=== PATIENT | male | born 1990 | race Caucasian/White ===

== ENCOUNTER → 2017-12-28 | Outpatient (CLI) | payer OTHER ==
[2017-12-28 12:23] LABS: ALBUMIN 4.3 GM/DL (3.2-5.2); ALBUMIN/GLOBULIN RATIO 1.16 (1.00-1.93); ALKALINE PHOSPHATASE 92 U/L (45-117); ALT/SGPT 121 U/L (12-78); AST/SGOT 37 U/L (7-37); BILIRUBIN,DIRECT 0.1 MG/DL (0.0-0.2); BILIRUBIN,TOTAL 0.4 MG/DL (0.2-1.0); IRON (FE) 78 UG/DL (65-175); PERCENT SATURATION 23.4 % (19.7-50.0); TOTAL IRON BINDING CAPACITY 333 UG/DL (250-450)
[2017-12-29 11:04] LABS: HEPATITIS B SURFACE ANTIGEN NEGATIVE (NEGATIVE)
[2017-12-29 11:31] LABS: HEPATITIS B CORE ANTIBODY IGM NEGATIVE (NEGATIVE)
[2017-12-29 11:40] LABS: HEPATITIS A ANTIBODY IGM NEGATIVE (NEGATIVE)
[2017-12-31 00:08] LABS: ANCA-ATYPICAL <1:20 titer (Neg:<1:20); ANTI-MITOCHONDRIAL ANTIBODY 1.3 Units (0.0-20.0); ANTINUCLEAR ANTIBODIES DIRECT Negative (Negative); CERULOPLASMIN 22.1 mg/dL (16.0-31.0); CYTOPLASMIC NEUTROP AB ANCA-C <1:20 titer (Neg:<1:20); LIVER-KIDNEY MICROSOMAL ABY 0.9 Units (0.0-20.0); PERINUCLEAR AB ANCA-P <1:20 titer (Neg:<1:20); TISSUE TRANSGLUTAMINASE IgA <2 U/mL (0-3)
== END ==
LOC: M LAB 11:07
DX: R94.5 Abnormal results of liver function studies (principal)
CPT/HCPCS: 83550

== ENCOUNTER 2018-05-16 10:44 | Inpatient (IN) | payer OTHER ==
[2018-05-16 11:15] LABS: HEMATOCRIT 45.4 % (42.0-52.0); HEMOGLOBIN 15.8 g/dl (13.5-17.5); MEAN CORPUSCULAR HEMOGLOBIN 29.5 pg (27.0-33.0); MEAN CORPUSCULAR HGB CONC 34.8 g/dl (32.0-36.5); MEAN CORPUSCULAR VOLUME 84.9 fl (80.0-96.0); PLATELET COUNT, AUTOMATED 262 10^3/uL (150-450); RED BLOOD COUNT 5.35 10^6/uL (4.30-6.10); RED CELL DISTRIBUTION WIDTH 12.2 % (11.5-14.5); WHITE BLOOD COUNT 7.6 10^3/uL (4.0-10.0)
[2018-05-16 11:41] LABS: AMPHETAMINES LEVEL URINE NEGATIVE (NEGATIVE); BARBITURATES URINE NEGATIVE (NEGATIVE); BENZODIAZEPINES URINE NEGATIVE (NEGATIVE); CANNABINOIDS URINE NEGATIVE (NEGATIVE); COCAINE METABOLITE URINE NEGATIVE (NEGATIVE); METHADONE URINE NEGATIVE (NEGATIVE); OPIATES URINE NEGATIVE (NEGATIVE); PHENCYCLIDINE URINE POSITIVE (NEGATIVE)
[2018-05-16] MEDS: LORazepam 2 MG/ML VIAL (J2060) IV (11:50)
[2018-05-16] MEDS: NS 1,000 ML IV (11:51)
[2018-05-16 12:44] LABS: ACETAMINOPHEN LEVEL < 2.0 UG/ML (10.0-30.0); ALBUMIN 3.8 GM/DL (3.2-5.2); ALBUMIN/GLOBULIN RATIO 0.97 (1.00-1.93); ALKALINE PHOSPHATASE 89 U/L (45-117); ALT/SGPT 113 U/L (12-78); ANION GAP 12 MEQ/L (8-16); AST/SGOT 38 U/L (7-37); BILIRUBIN,DIRECT 0.1 MG/DL (0.0-0.2); BILIRUBIN,TOTAL 0.5 MG/DL (0.2-1.0); BLOOD UREA NITROGEN 5 MG/DL (7-18); CALCIUM LEVEL 8.1 MG/DL (8.5-10.1); CARBON DIOXIDE LEVEL 24 MEQ/L (21-32); CHLORIDE LEVEL 98 MEQ/L (98-107); CPK CREATINE PHOSPHOKINASE 202 U/L (39-308); CREATININE FOR GFR 1.22 MG/DL (0.70-1.30); ETHYL ALCOHOL (ETHANOL) < 0.003 % (0.000-0.010); GLOMERULAR FILTRATION RATE > 60.0 (>60); GLUCOSE, FASTING 121 MG/DL (70-100); POTASSIUM SERUM 3.5 MEQ/L (3.5-5.1); SALICYLATE LEVEL < 1.7 MG/DL (5.0-30.0); SODIUM LEVEL 134 MEQ/L (136-145); TOTAL PROTEIN 7.7 GM/DL (6.4-8.2)
[2018-05-16 12:59] LABS: MB/CK RELATIVE INDEX 0.59 (< OR =4); TROPONIN I < 0.02 NG/ML (< 0.10)
[2018-05-16] MEDS: LABETALOL 100 MG TAB PO (13:01)
[2018-05-16] MEDS: LABETALOL HCL 100 MG/20 ML VIAL IV (13:02)
[2018-05-16] MEDS ORDERED: MOM 30ML SUSPENSION UDC PO (18:30)
[2018-05-16] MEDS ORDERED: ACETAMINOPHEN TAB 650MG DOSE (2X325MG) PO (18:30)
[2018-05-16] MEDS ORDERED: MAALOX 30 ML SUSP *UDC PO (18:30)
[2018-05-16] MEDS: traZODone 50 MG TAB PO (22:32)
[2018-05-17] MEDS: NICOTINE 21MG/24HR 1 EA TRANSDERMAL TD (09:22)
[2018-05-17] MEDS ORDERED: hydrOXYzine 50 MG TAB PO (12:00)
[2018-05-17] MEDS: FLUoxetine 10 MG CAP PO (12:12)
[2018-05-17] MEDS: traZODone 50 MG TAB PO (21:49)
[2018-05-18 07:59] LABS: ESTIMATED AVERAGE GLUCOSE 117 MG/DL (60-110); HEMOGLOBIN A1c 5.7 %
[2018-05-18 08:01] LABS: ALBUMIN 3.9 GM/DL (3.2-5.2); ALBUMIN/GLOBULIN RATIO 1.11 (1.00-1.93); ALKALINE PHOSPHATASE 83 U/L (45-117); ALT/SGPT 94 U/L (12-78); ANION GAP 6 MEQ/L (8-16); AST/SGOT 27 U/L (7-37); BILIRUBIN,TOTAL 0.4 MG/DL (0.2-1.0); BLOOD UREA NITROGEN 13 MG/DL (7-18); CALCIUM LEVEL 8.8 MG/DL (8.5-10.1); CARBON DIOXIDE LEVEL 28 MEQ/L (21-32); CHLORIDE LEVEL 106 MEQ/L (98-107); CREATININE FOR GFR 1.06 MG/DL (0.70-1.30); GLOMERULAR FILTRATION RATE > 60.0 (>60); GLUCOSE, FASTING 94 MG/DL (70-100); POTASSIUM SERUM 3.7 MEQ/L (3.5-5.1); SODIUM LEVEL 140 MEQ/L (136-145); TOTAL PROTEIN 7.4 GM/DL (6.4-8.2)
[2018-05-18] MEDS: FLUoxetine 10 MG CAP PO (09:24)
[2018-05-18] MEDS: NICOTINE 21MG/24HR 1 EA TRANSDERMAL TD (09:24)
[2018-05-18] MEDS: traZODone 50 MG TAB PO (21:36)
[2018-05-19] MEDS: FLUoxetine 10 MG CAP PO (08:26)
[2018-05-19] MEDS: NICOTINE 21MG/24HR 1 EA TRANSDERMAL TD (08:27)
== END 2018-05-19 12:55 | disposition home or self-care (01) | DRG 882 ==
LOC: M ED 10:44 → M ED INP 18:23 → M PSY 19:37
DX: F43.10 Post-traumatic stress disorder, unspecified (principal); E87.1 Hypo-osmolality and hyponatremia; F32.9 Major depressive disorder, single episode, unspecified; Z62.810 Personal history of physical and sexual abuse in childhood; E66.9 Obesity, unspecified; Z68.35 Body mass index [BMI] 35.0-35.9, adult; F17.200 Nicotine dependence, unspecified, uncomplicated

== ENCOUNTER → 2018-05-26 | Outpatient (CLI) | payer OTHER | LOC: M OUTALCOH 07:55 | DX: Z13.89 Encounter for screening for other disorder (principal); F10.10 Alcohol abuse, uncomplicated ==

== ENCOUNTER 2018-06-03 15:18 | Outpatient (RCR) | payer OTHER | END 2018-06-15 | LOC: M OUTALCOH 15:18 | DX: F19.20 Other psychoactive substance dependence, uncomplicated (principal); F10.10 Alcohol abuse, uncomplicated; F17.200 Nicotine dependence, unspecified, uncomplicated ==

== ENCOUNTER 2018-06-16 14:00 | Outpatient (RCR) | payer OTHER | END 2018-07-15 | LOC: M OUTALCOH 06-17 16:00 | DX: F19.20 Other psychoactive substance dependence, uncomplicated (principal); F10.10 Alcohol abuse, uncomplicated; F17.200 Nicotine dependence, unspecified, uncomplicated ==

== ENCOUNTER 2018-08-05 08:45 | Outpatient (RCR) | payer OTHER ==
[~2018-08-05 08:45] MED LIST: HYDRO50TAB PO; PROZ10CA7 PO; TRAZO50TA PO
== END 2018-08-15 ==
LOC: M OUTALCOH 08:45
PROVIDERS: ATTEND Psychiatry & Neurology Psychiatry
DX: F19.20 Other psychoactive substance dependence, uncomplicated (principal); F10.10 Alcohol abuse, uncomplicated; F17.200 Nicotine dependence, unspecified, uncomplicated

== ENCOUNTER 2020-05-06 14:26 | Inpatient (IN) | payer OTHER ==
[~2020-05-06] VITALS: Ht 188 cm; Wt 109.5 kg
[~2020-05-06 14:26] MED LIST changes: +HYDR1TAB33 PO; -HYDRO50TAB PO; +TRAZ1TAB10 PO; -TRAZO50TA PO
[2020-05-06 15:21] LABS: HEMATOCRIT 51.1 % (42.0-52.0); HEMOGLOBIN 17.6 g/dl (13.5-17.5); MEAN CORPUSCULAR HGB CONC 34.4 g/dl (32.0-36.5); MEAN CORPUSCULAR VOLUME 87.1 fl (80.0-96.0); PLATELET COUNT, AUTOMATED 245 10^3/uL (150-450); RED BLOOD COUNT 5.87 10^6/uL (4.30-6.10); WHITE BLOOD COUNT 7.1 10^3/uL (4.0-10.0)
[2020-05-06 15:54] LABS: AMPHETAMINES LEVEL URINE NEGATIVE (NEGATIVE); BARBITURATES URINE NEGATIVE (NEGATIVE); BENZODIAZEPINES URINE NEGATIVE (NEGATIVE); CANNABINOIDS URINE POSITIVE (NEGATIVE); COCAINE METABOLITE URINE NEGATIVE (NEGATIVE); METHADONE URINE NEGATIVE (NEGATIVE); OPIATES URINE NEGATIVE (NEGATIVE); PHENCYCLIDINE URINE NEGATIVE (NEGATIVE)
[2020-05-06 16:00] LABS: ACETAMINOPHEN LEVEL < 2.0 UG/ML (10.0-30.0); ALBUMIN 4.3 GM/DL (3.2-5.2); ALT/SGPT 35 U/L (12-78); BILIRUBIN,DIRECT 0.1 MG/DL (0.0-0.2); BILIRUBIN,TOTAL 0.3 MG/DL (0.2-1.0); BLOOD UREA NITROGEN 16 MG/DL (7-18); CALCIUM LEVEL 9.3 MG/DL (8.5-10.1); CARBON DIOXIDE LEVEL 25 MEQ/L (21-32); CHLORIDE LEVEL 104 MEQ/L (98-107); CREATININE FOR GFR 1.11 MG/DL (0.70-1.30); ETHYL ALCOHOL (ETHANOL) < 0.003 % (0.000-0.010); GLOMERULAR FILTRATION RATE > 60.0 (>60); GLUCOSE, FASTING 87 MG/DL (70-100); POTASSIUM SERUM 4.2 MEQ/L (3.5-5.1); SALICYLATE LEVEL < 1.7 MG/DL (5.0-30.0); SODIUM LEVEL 135 MEQ/L (136-145); TOTAL PROTEIN 8.3 GM/DL (6.4-8.2)
--- NOTE | 2020-05-06 20:36 | ECGEPIP ---
[facility] - ED Test Date: 2020-05-06 Pat Name: MAHENDRA ZAMORANO Department: Room: - Gender: Male Deliverer Outside: JAZ : 1990 Requested By: BRIGID Ba Order Number: [id number] Reading MD: Yaritza Whitfield Measurements Intervals Massey Rate: 68 P: 53 VA: 163 QRS: 59 QRSD: 99 T: 30 QT: 392 QTc: 420 Interpretive Statements SINUS RHYTHM WITH SINUS ARRHYTHMIA DECREASED RATE 05/16/18 Electronically Signed on 05-06-2020 20:36:26 EDT by Yaritza Whitfield
[2020-05-07] MEDS ORDERED: MAALOX 30 ML SUSP *UDC PO PRN (17:15)
[2020-05-07] MEDS ORDERED: MOM 30ML SUSPENSION UDC PO PRN (17:15)
[2020-05-07] MEDS ORDERED: ACETAMINOPHEN TAB 650MG DOSE (2X325MG) PO PRN (17:15)
[2020-05-07] MEDS ORDERED: OLANZapine ORAL DISINTEGRATING TAB 5MG PO PRN (17:15)
[2020-05-07 19:16] VITALS: BP 132/74
[2020-05-08 06:54] VITALS: BP 138/75
[2020-05-08] MEDS: NICOTINE 21MG/24HR 1 EA TRANSDERMAL TD SCH (08:39)
[2020-05-08] MEDS ORDERED: SERTRALINE HCL 50 MG TAB PO SCH (09:00)
--- NOTE | 2020-05-08 10:10 | MHHPEPDOC ---
[facility] History & Physical History and Physical DATE OF ADMISSION: May 07, 2020 at 17:10 HPI: Beni presents today for concerns regarding his suicidal ideations. 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 Patient participated in an [facility] addiction program after being discharged, but left the program stating it was not beneficial. Patient states he has been clean since leaving the program, but has not seen a provider, including a PCP. Patients substance use began after he moved out of his mothers house at the age 18. Patient currently states he has symptoms of depression and has little desire to perform daily tasks. For one week patient has called into work sick and has felt the desire to abuse cold medicine again. He also has not been eating or sleeping well. He admits to six suicide attempts all by overdose. He states that if this admission does not work he will kill himself. Patient reports feeling guilty that having a younger child does not prevent him from feeling this way and that he does not deserve to feel this way. Patient is aware he will need to be aponte sferred to inaudible. Patient describes his mood appropriate. He denies any delusions or hallucinations. Patient notes his appetite decreased and has issues with sleep. He also reports feeling depressed, helpless, and hopeless. He also reports having suicidal ideation. He reports a history of anxiety, depression, sleep disturbance, suicidal ideation, suicide attempt, and trauma history. He notes he does not have any current outpatient treatment. Patient reports suicidal ideation with a plan to overdose. He denies any homicidal ideation. He notes these thoughts have been persistent for more than 3 months. Patient notes he admitted himself due to experiencing a poor mindset. He notes he would use Dextromethorphan to overdose. But, patient notes he has not used it in 2 years. He states he was thinking about using it, and he states that will lead to using it. He notes he goes through cycles and notes a poor sleep cycle. He denies staying up for weeks at a time doing terrible things. He denies any auditory hallucinations. He denies any current suicidal thoughts, but he does report thoughts of self-hate. MEDICAL HISTORY: Patient was admitted to [facility] in May 2018, specifically to the IMU unit after an overdose on cold medicine. He has a history of trauma since he was a child. Patient has been admitted to [facility] in 2018. He notes he was an admitted to this facility 2 years ago, and attended the behavioral health dual program down the street. He notes he stopped the outpatient treatment when his son was born. Patient reports a past diagnosis of anxiety, depression, and PTSD. FAMILY HISTORY: Patients father had severe addiction issues and depression, and his mothers side of the family has a history of depression and bipolar disorder. SOCIAL HISTORY - OCCUPATION: Patient had one deployment to [place], but was discharged due to drug use. SOCIAL HISTORY - LIVING SITUATION: Patient moved to this area three years ago from [place], while his is currently stationed at [employer]. They share a 2 year-old son and three cats. He is currently . Patient reports his support parameters are his and 2-year-old son. He notes that his stress began recently because he is moving to [place] soon. SOCIAL HISTORY - SMOKING: He reports the use of marijuana daily. He also reports the use of nicotine and will smoke 1/2 a pack daily. He notes he has not used drugs in the last 2 years other than marijuana, but he states he uses marijuana as a stabilizer. Objective Appearance: Well groomed. Appears to be stated age. Well nourished. Behavior: Cooperative rapport with interviewer. Good energy level. Poor appetite. Affect: Appropriate to context. Full range. Mood: Appropriately reactive. Euthymic. Generally good. Speech: Normal volume. Normal rate. Spontaneous and Fluid. Motor: No gross motor abnormalities. Cognition: Alert, Attentive, and Oriented to person, place, time. Memory: No formal testing. No gross abnormalities of short or management tech memory noted during interview. Thought Form: Linear and goal directed. Thought Content: Depressive. Delusion not observed. Judgement: Intact as evidenced by decision making in the recent past. Insight: Good insight into symptoms and treatment options. Assessment F41.9 Anxiety disorder, unspecified F32.9 Major depressive disorder, single episode, unspecified Plan Patient will begin taking Wellbutrin 150 mg xl daily, discussed risks, benefits and potential side effects tx priorities 1. risk for suicide and substance use LOS 1-5 days, convert to vol status Vital Signs Vital Signs Date Time Temp Pulse Resp B/P (MAP) Pulse Ox O2 Delivery O2 Flow Rate FiO2 05/08/20 06:54 96.3 51 12 138/75 (96) 99 Room Air Medications No Active Prescriptions or Reported Meds Allergies Coded Allergies: No Known Allergies (Unverified , 05/16/18) ZACH ASHRAF DO May 08, 2020 10:10
[2020-05-08] MEDS: buPROPion **XL** TABLET 150MG (WELLBUTRIN XL) PO SCH (13:02)
[2020-05-08 15:31] VITALS: BP 150/81
--- NOTE | 2020-05-08 17:29 | HPEPDOC ---
General Date of Admission May 07, 2020 at 17:10 Date of Service: May 08, 2020 Chief Complaint The patient is a 29-year-old male admitted with a reason for visit of Unspecified Depressive Do. History of Present Illness 29 yoM admitted to [facility] for unspecified depressive disorder, being medically examined today. He does not have any medical complaints today. Home Medications Scheduled Bupropion Hcl (Bupropion Xl) 150 Mg Tab.er.24h, 300 MG PO DAILY for mood Nicotine (Nicotine Patch) 21 Mg Patch.td24, 1 PATCH TD DAILY for tobacco Allergies Coded Allergies: No Known Allergies (Unverified , 05/16/18) Past Medical History Medical History Fatty liver Depression PTSD ADHD History of SI Poly Substance use disorder Obesity. Surgical History wisdom tooth removal tonsillectomy Family History Significant Family History: Diabetes Mother: Alive, well Father: substance use Siblings: One brother Alive, history of substance use, depression. Paternal uncle completed suicide Maternal grandfather: Dm and HTN, heart disease Maternal Aunt Bipolar, Breast cancer Social History * Smoker: current smoker Alcohol: occationally (once a month) Drugs: marijuana, other (many substances in the past including LSD, mushrooms, ecstasy, cocaine, marijuana, heroin, spice, psychedelics including 2CP, 2CI, 2CX, dextromethorphan abuse.) A-FIB/CHADSVASC A-FIB History Current/History of A-Fib/PAF?: No Review of Systems Constitutional: Denies: Chills, Fever, Night Sweats Eyes: Denies: Pain, Vision change ENT: Reports: Head Aches; Denies: Ear Pain, Dysphagia Skin: Denies: Rash, Lesions, Breakdown Pulmonary: Denies: Dyspnea, Cough Cardiovascular: Denies: Chest Pain, Palpitations, Orthopnea, Paroxysmal Noc. Dyspnea, Lt Headedness Gastrointestinal: Denies: Nausea, Vomiting, Abdominal Pain, Diarrhea Genitourinary: Denies: Dysuria, Frequency, Incontinence, Retention Musculoskeletal: Denies: Neck Pain, Back Pain, Joint Pain, Muscle Pain, Spasms Physical Examination General Exam: Positive: Alert, Cooperative, No Acute Distress Eye Exam: Positive: PERRLA, Conjunctiva & lids normal, EOMI; Negative: Sclera icteric ENT Exam: Positive: Atraumatic, Mucous membr. moist/pink, Pharynx Normal Neck Exam: Positive: Supple; Negative: JVD, thyromegaly Chest Exam: Positive: Clear to auscultation, Normal air movement Heart Exam: Positive: Rate Normal, Regular Rhythm, Normal S1, Normal S2; Negative: Murmurs, Rubs Abdomen Exam: Positive: Normal bowel sounds, Soft; Negative: Tenderness, Hepatospenomegaly Extremity Exam: Positive: Normal pulses; Negative: Clubbing, Cyanosis, Edema Vital Signs Vital Signs Date Time Temp Pulse Resp B/P (MAP) Pulse Ox O2 Delivery O2 Flow Rate FiO2 05/08/20 06:54 96.3 51 12 138/75 (96) 99 Room Air Assessment/Plan 29 yoM admitted to [facility] for unspecified depressive disorder, being medically examined today. He does not have any medical complaints today. Depression/PTSD as per psychiatry Obesity/ fatty liver says lost 50 lbs in the past 2 years and cut down to drinking once a month. No acute medical issues will sign off. Plan / VTE VTE Prophylaxis Ordered?: No BRIANNA MURRAY MD May 08, 2020 13:56
[2020-05-09 06:30] VITALS: BP 125/82
[2020-05-09] MEDS: buPROPion **XL** TABLET 150MG (WELLBUTRIN XL) PO SCH (08:27)
[2020-05-09] MEDS: NICOTINE 21MG/24HR 1 EA TRANSDERMAL TD SCH (08:28)
[2020-05-09] MEDS ORDERED: INFLUENZA QUADRIVALENT PF VACCINE 0.5ML SYRINGE IM ONE (09:00)
--- NOTE | 2020-05-09 10:28 | MHIPNPDOC ---
[facility] Progress Note Progress Note DATE OF SERVICE: 05/09/20 Subjective HPI: The patient is met with today, he reports he is doing somewhat better is making some improvements on the Wellbutrin, he reports he says taking the 1st dose but feels like the environments helpful for him. He reports that his depression is problematic but is interested in electroconvulsive treatment as he wonders if he needs to be on medication for his life. Staff report that he is doing well without any issues. Objective General: Well dressed with good hygiene Speech: Spontaneous and fluid Thought processes: Linear and logical Thought content: Future orientated Abstract reasoning, and computation: Intact Description of associations: Intact Description of abnormal or psychotic thoughts:Denies any suicidal or homicidal ideation. Denies any auditory or visual hallucinations. Does not appear to be responding to internal stimuli. Does not appear to be endorsing any bizarre or paranoid ideation. Judgment: fair Insight: fair Orientation: Alert and orientated 3 Recent and remote memory: Intact Attention span and concentration: Intact Fund of knowledge: Adequate Mood: "okay" Affect: Euthymic with a full range Assessment major depressive disorder, recurrent, unspecified Plan Plans to continue Wellbutrin 150 XL mg daily, currently vol potential discharge Wednesday Vital Signs Vital Signs Date Time Temp Pulse Resp B/P (MAP) Pulse Ox O2 Delivery O2 Flow Rate FiO2 05/09/20 06:30 96.7 58 12 125/82 (96) Room Air 05/08/20 06:54 99 Current Medications Current Medications Medications (Trade) Dose Ordered Sig/Shannan Route PRN Reason Start Time Stop Time Status Last Admin Dose Admin Acetaminophen (Tylenol Tab) 650 mg Q6HP PRN PO HEADACHE or DISCOMFORT 05/07/20 17:15 Al Hydrox/Mg Hydrox/Simethicone (Mylanta) 30 ml Q4HP PRN PO HEARTBURN/INDIGESTION 05/07/20 17:15 Bupropion HCl (Wellbutrin Xl) 150 mg DAILY PO 05/08/20 09:00 05/09/20 08:27 Home Med (Med Rec Complete!) ASDIRECTED XX 05/06/20 20:30 05/06/20 20:28 DC Magnesium Hydroxide (Milk Of Magnesia) 30 ml DAILYPRN PRN PO CONSTIPATION 05/07/20 17:15 Nicotine (Nicoderm Cq 21mg) 1 patch DAILY TD 05/08/20 09:00 05/09/20 08:28 Olanzapine (ZyPREXA ZYDIS) 5 mg Q6HP PRN PO AGITATION 05/07/20 17:15 Sertraline HCl (Zoloft) 50 mg DAILY PO 05/08/20 09:00 05/08/20 11:58 DC Trazodone HCl (Desyrel) 50 mg QHSP PRN PO INSOMNIA 05/07/20 17:15 Allergies Coded Allergies: No Known Allergies (Unverified , 05/16/18) ZACH ASRHAF DO May 09, 2020 10:28
[2020-05-09 18:19] VITALS: BP 142/80
[2020-05-09] MEDS: traZODone 50 MG TAB PO PRN (21:12)
[2020-05-10 06:33] VITALS: BP 114/67
[2020-05-10] MEDS: buPROPion **XL** TABLET 150MG (WELLBUTRIN XL) PO SCH (08:19)
[2020-05-10] MEDS: NICOTINE 21MG/24HR 1 EA TRANSDERMAL TD SCH (08:19)
--- NOTE | 2020-05-10 10:19 | MHIPNPDOC ---
[facility] Progress Note Progress Note DATE OF SERVICE: 05/10/20 Subjective HPI: The patient is met with today, he reports his made some progress and is feeling somewhat better, he asked more about his condition and education about depression and symptoms is undertaken. Staff report that he is been doing well and is talkative on the unit. Objective General: Well dressed with good hygiene Speech: Spontaneous and fluid Thought processes: Linear and logical Thought content: Future orientated Abstract reasoning, and computation: Intact Description of associations: Intact Description of abnormal or psychotic thoughts:Denies any suicidal or homicidal ideation. Denies any auditory or visual hallucinations. Does not appear to be r esponding to internal stimuli. Does not appear to be endorsing any bizarre or paranoid ideation. Judgment: fair Insight: fair Orientation: Alert and orientated 3 Recent and remote memory: Intact Attention span and concentration: Intact Fund of knowledge: Adequate Mood: "okay" Affect: Euthymic with a full range Assessment major depression, recurrent, unspecified Plan Will increase Wellbutrin to 300 mg of extended release daily, potential discharge Wednesday patient doing better discussed with him about different treatment options Vital Signs Vital Signs Date Time Temp Pulse Resp B/P (MAP) Pulse Ox O2 Delivery O2 Flow Rate FiO2 05/10/20 06:33 97.1 50 12 114/67 (83) Room Air 05/08/20 06:54 99 Current Medications Current Medications Medications (Trade) Dose Ordered Sig/Shannan Route PRN Reason Start Time Stop Time Status Last Admin Dose Admin Acetaminophen (Tylenol Tab) 650 mg Q6HP PRN PO HEADACHE or DISCOMFORT 05/07/20 17:15 Al Hydrox/Mg Hydrox/Simethicone (Mylanta) 30 ml Q4HP PRN PO HEARTBURN/INDIGESTION 05/07/20 17:15 Bupropion HCl (Wellbutrin Xl) 150 mg DAILY PO 05/08/20 09:00 05/10/20 08:19 Home Med (Med Rec Complete!) ASDIRECTED XX 05/06/20 20:30 05/06/20 20:28 DC Magnesium Hydroxide (Milk Of Magnesia) 30 ml DAILYPRN PRN PO CONSTIPATION 05/07/20 17:15 Nicotine (Nicoderm Cq 21mg) 1 patch DAILY TD 05/08/20 09:00 05/10/20 08:19 Olanzapine (ZyPREXA ZYDIS) 5 mg Q6HP PRN PO AGITATION 05/07/20 17:15 Sertraline HCl (Zoloft) 50 mg DAILY PO 05/08/20 09:00 05/08/20 11:58 DC Trazodone HCl (Desyrel) 50 mg QHSP PRN PO INSOMNIA 05/07/20 17:15 05/09/20 21:12 Allergies Coded Allergies: No Known Allergies (Unverified , 05/16/18) ZACH ASHRAF DO May 10, 2020 10:19
[2020-05-10 18:31] VITALS: BP 135/70
[2020-05-10] MEDS: traZODone 50 MG TAB PO PRN (23:43)
[2020-05-11 06:29] VITALS: BP 129/76
[2020-05-11] MEDS: buPROPion **XL** TABLET 150MG (WELLBUTRIN XL) PO SCH (08:44)
[2020-05-11] MEDS: NICOTINE 21MG/24HR 1 EA TRANSDERMAL TD SCH (08:45)
[2020-05-11 18:00] VITALS: BP 136/78
[2020-05-11] MEDS: traZODone 100 MG TAB PO PRN (20:48)
[2020-05-12 06:49] VITALS: BP 117/67
[2020-05-12] MEDS: NICOTINE 21MG/24HR 1 EA TRANSDERMAL TD SCH (08:20)
[2020-05-12] MEDS: buPROPion **XL** TABLET 150MG (WELLBUTRIN XL) PO SCH (08:21)
[2020-05-12 17:46] VITALS: BP 140/77
[2020-05-12] MEDS: traZODone 100 MG TAB PO PRN (20:59)
[2020-05-13 06:34] VITALS: BP 122/70
[2020-05-13] MEDS: buPROPion **XL** TABLET 150MG (WELLBUTRIN XL) PO SCH (09:03)
[2020-05-13] MEDS: NICOTINE 21MG/24HR 1 EA TRANSDERMAL TD SCH (09:04)
--- NOTE | 2020-05-13 09:53 | MHDSPDOC ---
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 He did quite well and generally demonstrated good insight and judgement. He improved well and eventually his symptoms were resolved, and he was triage for discharge. He had no concerning behavior and was notably engaged on the unit, focused on getting better, and improving his experience. MEDICATIONS: He was admitted and started on Wellbutrin of which he did well, initially 150 increased to 300 mg. DISCHARGE ASSESSMENT[improved] Legal status considerations: The patient at the time of discharge did not meet criteria for involuntary admission/extension due to having a [normal] mental status exam, [fair] insight into the situation, They are engaged in the discharge process, as well as being friendly and amenable in behavioral control and havent been engaging in any observed concerning behavior or ideation recently. They decline voluntary extension/admission at this time and must be discharged in [facility], as Im unable to make a case for holding the patient against their will. They may have historical risk factors of admissions and other interactions with psychiatry however, those are not modifiable from a clinical perspective. The patient will need to be discharged in [facility]. MENTAL STATUS EXAMINATION ON DISCHARGE: [General: Well dressed with good hygiene Speech: Spontaneous and fluid Thought processes: Linear and logical Thought content: Future orientated Abstract reasoning, and computation: Intact Description of associations: Intact Description of abnormal or psychotic thoughts:Denies any suicidal or homicidal ideation. Denies any auditory or visual hallucinations. Does not appear to be responding to internal stimuli. Does not appear to be endorsing any bizarre or paranoid ideation. Judgment: fair Insight: fair Orientation: Alert and orientated 3 Recent and remote memory: Intact Attention span and concentration: Intact Fund of knowledge: Adequate Mood: "okay" Affect: Euthymic with a full range] PLAN/FOLLOWUP ARRANGEMENTS: Follow up appointments made (PCP and MH in 5 days of D/C date) and safety plan completed. Safety Planning aspects completed prior to discharge [Medication supplies limited to 7 days with 4 refills to prevent accumulation to OD] [Family contact completed, educated on safe practices, instructed on removal and mitigation of dangerous means] [RN reviewed crisis hotline information and other aspects to empower patient to access care in interim before next appointment.] The amount of time spent in the coordination of care for this patient was approximately 30 minutes. Vital Signs/I&Os Vital Signs Date Time Temp Pulse Resp B/P (MAP) Pulse Ox O2 Delivery O2 Flow Rate FiO2 05/13/20 06:34 96.3 56 12 122/70 (87) 96 Room Air Medications Scheduled Bupropion Hcl (Bupropion Xl) 150 Mg Tab.er.24h, 300 MG PO DAILY for mood for 7 Days, #7 Nicotine (Nicotine Patch) 21 Mg Patch.td24, 1 PATCH TD DAILY for tobacco for 30 Days, #30 Allergies Coded Allergies: No Known Allergies (Unverified , 05/16/18) ZACH ASHRAF DO May 13, 2020 09:53
[2020-05-13] MEDS ORDERED: BUPR150T3 PO (10:13)
[2020-05-13] MEDS ORDERED: NICO21PAT TD (10:13)
--- NOTE | 2020-05-29 08:42 | MHIPN ---
DATE: 05/11/2020 The patient today tells me that he slept poorly. He did take the trazodone 50 mg. He describes still feeling depressed, but he says it is not as intense as it was, because he says that being out of the stressors in his life is, of course, helping him. He is denying having suicidal thoughts today MENTAL STATUS EXAMINATION: This patient is alert and oriented times three. Eye contact is fairly good. He is verbally spontaneous. There is no formal thought disorder noted. His mood is depressed. Affect is appropriate to mood. He is not psychotic. He denies suicidal ideation today. He denies homicidal ideation. Concentration is fair. Memory is intact. Insight and judgment fair. DIAGNOSES: 1. Anxiety disorder, unspecified. 2. Major depressive disorder, single episode. TREATMENT PLAN: At this point, we will continue to further evaluate this patient. Of note is that this patient states that he has had about six suicidal attempts by overdose in the past, and so he is a significant potential risk. When he was admitted to the hospital on 05/07/2020, he indicated that if this admission does not work, that he will kill himself, and so we will continue the evaluation and make sure that he is fully stable before discharge. Also he says that he has not slept well with the trazodone 50 mg, so I will increase it to 100 mg. MTDD
== END 2020-05-13 14:45 | disposition home or self-care (01) | DRG 885 ==
LOC: M ED 14:26 → M ED INP 05-07 17:10 → M PSY 05-07 17:39
PROVIDERS: ADMIT Psychiatry & Neurology Psychiatry; ATTEND Psychiatry & Neurology Addiction Medicine
DX: F33.8 Other recurrent depressive disorders (principal); R45.851 Suicidal ideations; F16.99 Hallucinogen use, unspecified with unspecified hallucinogen-induced disorder; F17.200 Nicotine dependence, unspecified, uncomplicated; K76.0 Fatty (change of) liver, not elsewhere classified; E66.9 Obesity, unspecified